=== PATIENT | male | born 1965 | race Caucasian/White ===

== ENCOUNTER 2018-02-17 10:40 | Emergency (ER) | payer BC ==
[2018-02-17] MEDS ORDERED: Ondansetron PF 4 MG/2 ML Vial ONE (11:28)
[2018-02-17] MEDS ORDERED: Morphine 4 MG/ML VIAL ONE ×2 (11:28→14:53)
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
[2018-02-17 11:51] LABS: #Basophils 0.1 thou/uL (0.0-0.2); #Eosinphils 0.4 thou/uL (0.0-0.7); #Lymphocytes 3.8 thou/uL (1.20-3.40); #Monocytes 0.6 thou/uL (0.11-0.59); #Neutrophils 5.2 thou/uL (1.40-6.50); %Basophils 0.9 % (0.0-1.0); %Eosinophils 3.9 % (0.0-10.0); %Lymphocytes 37.9 % (21.0-51.0); %Monocytes 5.7 % (0.0-10.0); %Neutrophils 51.6 % (42.0-75.0); Mean Corpuscular HGB CONC 35.8 g/dL (32.0-36.0); Mean Corpuscular Hemoglobin 29.8 pg (27.0-31.0); Mean Corpuscular Volume 83.4 fL (78.0-98.0); Mean Platelet Volume 7.9 fL (7.4-10.4); Platelet Count 210 thou/uL (130-400); RBC Distribution Width 11.7 % (11.5-14.5); Red Blood Cell (RBC) Count 5.03 mill/uL (4.70-6.10)
[2018-02-17 12:32] LABS: ALT (SGPT) 43 U/L (8-55); AST (SGOT) 31 U/L (5-34); Albumin 4.3 g/dL (3.5-5.0); Alkaline Phosphatase 70 U/L (40-150); Anion Gap 21 mmol/L (10-20); BUN (Urea Nitrogen) 16 mg/dL (8.4-25.7); Bilirubin, Total 0.6 mg/dL (0.2-1.2); Calc. Creatinine Clearance 0 mL/min (70-130); Calcium 9.7 mg/dL (7.8-10.44); Carbon Dioxide 13 mmol/L (22-29); Chloride 102 mmol/L (98-107); Estimated GFR-MDRD Greater than 90; Glucose 250 mg/dL (70-105); Potassium 4.2 mmol/L (3.5-5.1); Protein, Total 8.3 g/dL (6.0-8.3); Sodium 132 mmol/L (136-145)
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
== END 2018-02-17 15:30 | disposition home or self-care (01) ==
LOC: ERS 10:40
DX: S80.812A Abrasion, left lower leg, initial encounter (principal); M25.511 Pain in right shoulder; M54.5 Low back pain; R20.2 Paresthesia of skin; E78.5 Hyperlipidemia, unspecified; E11.9 Type 2 diabetes mellitus without complications; Z87.891 Personal history of nicotine dependence; Z79.84 Long term (current) use of oral hypoglycemic drugs; Z79.899 Other long term (current) drug therapy; Z79.82 Long term (current) use of aspirin; I50.9 Heart failure, unspecified; V43.52XA Car driver injured in collision with other type car in traffic accident, initial encounter
CPT/HCPCS: 36415; 70450; 71260; 72125; 72141; 74177; 80053; 84484; 85025; 93005; 96374; 96375; 96376; J2270; J2405

== ENCOUNTER 2019-04-02 17:15 | Day surgery (SDC) | payer BC ==
[~2019-04-02 17:15] MED LIST: Bupivacaine PF 0.75% SDV 10 ML ONE; CEFAZOLIN 1 GM VIAL ONE; Enoxaparin Sodium 30 MG/0.3 ML SYRINGE ONE; Fluorouracil 100 MG, Enoxaparin Sodium 25 MG, EPINEPHrine 0.3 MG in Ophthalmic Irrigati... IRR SCH; Lidocaine 1% PF 5 ML VIAL ONE; Lidocaine 4% PF 5 ML AMP ONE; Maxitrol 0.1% Opth Oint 3.5 GM TUBE ONE; PROPOFOL 200 MG/20 ML VIAL ONE; Triamcinolone 40 MG/ML VIAL ONE
[2019-04-02] MEDS ORDERED: Cyclopentolate 1% Opth Drop 2 ML BOT ONE (17:19)
[2019-04-02] MEDS ORDERED: Phenylephrine 2.5% Ophth Soln 5 ML BOT ONE (17:20)
[2019-04-02] MEDS ORDERED: Midazolam HCl 2 mg/2 ml Vial ONE (17:23)
[2019-04-02] MEDS ORDERED: Insulin Regular 300 UNITS/3 ML VIAL ONE (17:41)
[2019-04-02] MEDS ORDERED: Fentanyl 100 MCG/2 ML VIAL ONE (18:43)
--- NOTE | 2019-04-02 20:46 | OP ---
DATE OF PROCEDURE: 04/02/2019 PREOPERATIVE DIAGNOSIS: Rhegmatogenous retinal detachment, left eye. POSTOPERATIVE DIAGNOSIS: Rhegmatogenous retinal detachment, left eye. PROCEDURE PERFORMED: Pars plana vitrectomy and retinal detachment repair, left eye. ANESTHESIA: Local with monitored anesthesia care. DESCRIPTION OF PROCEDURE: The patient was identified in the preoperative holding area. Appropriate informed consent for the planned surgical procedure on the left eye had been obtained. The patient was transported to the operative suite. Appropriate cardiopulmonary monitoring was established. Local anesthesia was obtained using retrobulbar modified Van Lint lid block using 50:50 mixture of 4% lidocaine and 0.75% bupivacaine. The patient was prepped and draped in usual sterile manner for ophthalmic surgery in the left eye. Lid speculum was placed in the left eye. A 25-gauge trocar was placed in the conjunctiva and sclera superotemporally, inferotemporally, and supranasally. Infusion line was placed inferotemporally. Light pipe and vitreous cutter were inserted to the eye. Core vitrectomy was performed. Vitreous base was shaved 360 degrees using wide field viewing system. Special attention was turned to the detachment superiorly. The posterior drain was created superior to the nerve. A laser barricade was placed in attached retina. Complete air-fluid exchange was performed, flattening the retina, and a 360 laser barricade was completed, 10 minutes were allowed for fluid to drain posteriorly. 28% sulfur hexafluoride gas was infused into the eye. Superior sclerotomy suture closed. Retrobulbar Kenalog and subconjunctival Ancef were placed. Antibiotic ointment was placed. Eye was patched and shielded. The patient was advised to position right side down and followup appointment with Dr. Carey. Job ID: [id number]
== END 2019-04-02 20:26 | disposition home or self-care (01) ==
LOC: SDC 17:15
PROVIDERS: ATTEND Ophthalmology Retina Specialist
PROC: 08T53ZZ Resection of Left Vitreous, Percutaneous Approach (ICD-10-PCS; principal; 2019-04-02)
DX: H33.012 Retinal detachment with single break, left eye (principal); Z91.013 Allergy to seafood; Z91.041 Radiographic dye allergy status
CPT/HCPCS: 36416; 67025; J0171; J0690; J1650; J1815; J2001; J2250; J2704; J3010; J3301; J3490; J9190

== ENCOUNTER 2020-02-11 15:43 | Observation (INO) | payer BC ==
[~2020-02-11 15:43] MED LIST changes: -Bupivacaine PF 0.75% SDV 10 ML ONE; -CEFAZOLIN 1 GM VIAL ONE; -Enoxaparin Sodium 30 MG/0.3 ML SYRINGE ONE; -Fluorouracil 100 MG, Enoxaparin Sodium 25 MG, EPINEPHrine 0.3 MG in Ophthalmic Irrigati... IRR SCH; +Iopamidol 370 76% 100 ML VIAL ONE; -Lidocaine 1% PF 5 ML VIAL ONE; -Lidocaine 4% PF 5 ML AMP ONE; -Maxitrol 0.1% Opth Oint 3.5 GM TUBE ONE; -PROPOFOL 200 MG/20 ML VIAL ONE; -Triamcinolone 40 MG/ML VIAL ONE
[2020-02-11] MEDS ORDERED: cefTRIAXone\\ROCEPHIN 2 GM VIAL ONE (16:35)
[2020-02-11 16:53] LABS: #Eosinphils 0.5 thou/uL (0.0-0.7); #Lymphocytes 3.1 thou/uL (1.20-3.40); #Monocytes 0.9 thou/uL (0.11-0.59); %Basophils 0.3 % (0.0-1.0); %Eosinophils 4.4 % (0.0-10.0); %Lymphocytes 26.7 % (21.0-51.0); %Monocytes 7.6 % (0.0-10.0); %Neutrophils 60.9 % (42.0-75.0); Hemoglobin 14.6 g/dL (14.0-18.0); Mean Corpuscular HGB CONC 34.8 g/dL (32.0-36.0); Mean Platelet Volume 7.7 fL (7.4-10.4); Platelet Count 197 thou/uL (130-400); RBC Distribution Width 11.9 % (11.5-14.5); Red Blood Cell (RBC) Count 4.86 mill/uL (4.70-6.10); White Blood Cell (WBC) Count 11.5 thou/uL (4.8-10.8)
[2020-02-11] MEDS ORDERED: Azithromycin 500 MG VIAL ONE (17:17)
[2020-02-11 17:25] LABS: ALT (SGPT) 33 U/L (8-55); AST (SGOT) 21 U/L (5-34); Albumin 4.4 g/dL (3.5-5.0); Alkaline Phosphatase 49 U/L (40-110); Anion Gap 17 mmol/L (10-20); BUN (Urea Nitrogen) 20 mg/dL (8.4-25.7); Bilirubin, Total 0.6 mg/dL (0.2-1.2); Calc. Creatinine Clearance 0 mL/min (70-130); Calcium 9.2 mg/dL (7.8-10.44); Carbon Dioxide 23 mmol/L (22-29); Chloride 102 mmol/L (98-107); Globulin 2.8 g/dL (2.4-3.5); Glucose 265 mg/dL (70-105); Protein, Total 7.2 g/dL (6.0-8.3); Sodium 138 mmol/L (136-145)
[2020-02-11 18:18] LABS: Bacteria/HPF None Seen HPF (None Seen); Bilirubin Negative (Negative); Blood, Urine Trace (Negative); Clarity Clear (Clear); Glucose, Urine (Dipstick) Greater than 1000 mg/dL (Negative); Ketone, Urine Negative (Negative); Leukocyte Negative Leu/uL (Negative); Nitrite Negative (Negative); Protein, Urine (Dipstick) Negative (Neg-Trace); RBC/HPF 0-3 HPF (0-3); Specific Gravity, Urine 1.023 (1.002-1.036); Squamous Epithelial None Seen HPF (0-3); Urobilinogen Normal mg/dL (Less than 2); WBC/HPF 0-3 HPF (0-3); pH, Urine 5.5 (5.0-9.0)
--- NOTE | 2020-02-11 19:25 | RAD ---
SINGLE VIEW OF THE CHEST: 02/11/20 COMPARISON: 07/14/08 HISTORY: Cough and fever. Suspected COVID infection. FINDINGS: Single view of the chest shows a normal sized cardiomediastinal silhouette. There is no evidence of c onsolidation, mass, or pleural effusion. The bones are unremarkable. IMPRESSION: No evidence of acute cardiopulmonary disease. POS: [facility]
[2020-02-11 20:10] LABS: Lactic Acid 1.5 mmol/L (0.5-2.2)
[2020-02-11] MEDS ORDERED: Acetaminophen 325 MG TAB PO PRN (21:05)
--- NOTE | 2020-02-11 21:36 | CT ---
CTA Angio Chest W WO Con History: Shortness of breath Comparison: Radiograph chest same day Findings: CT angiogram chest performed after the intravenous ministration of contrast. 3-D rendering provided. Evaluation for embolism was limited due to the delayed phase of contrast with minimal contrast within the pulmonary arteries. Given this limitation no proximal segmental pulmonary arterial filling defect. No significant pericardial effusion. Aortic contour is nonaneurysmal. Diffuse hepatic steatosis. Small reactive mediastinal lymph nodes. No confluent airspace consolidation, pneumothorax or effusion. Small 4 mm nodule posterior left lower lobe has not grown cyst comparison CT examination February 2018. Sternum and manubrium are intact. Thoracic spine is intact. No acute displaced rib fracture. Left cor acoid bone island. Impression: No pulmonary embolism or other acute intrathoracic abnormality.
--- NOTE | 2020-02-12 00:14 | HP ---
CHIEF COMPLAINT: Shortness of breath, cough. HISTORY OF PRESENT ILLNESS: Mr. Rodriguez is a 54-year-old male with past medical history of diabetes, hypertension, hyperlipidemia, unspecified heart condition, presents to the emergency room with shortness of breath, cough, fever, body aches, and chest pain, this has been going on for the last 3 days. The patient was seen at Urgent Care and had a rapid COVID swab done and it was negative. Urgent Care MD suspected the patient has COVID, so he sent here for further evaluation. Initial workup in the emergency room, patient had a lactic acid of 3.5, repeat lactic acid is 1.5. Troponin less than 0.01. Electrolytes showed glucose of 265, otherwise unremarkable. D-dimer was 0.29, WBC count 11.5, hemoglobin 14.6, platelets 197. CT of the chest negative for pulmonary embolism, no acute lung pathology. The patient is being admitted to hospital for further management. PAST MEDICAL HISTORY: As mentioned above in the history of present illness. PAST SURGICAL HISTORY: 1. Appendectomy. 2. Back surgery. SOCIAL HISTORY: The patient is a former cigarette smoker. He drinks socially every week. FAMILY HISTORY: Reviewed and noncontributory. HOME MEDICATIONS: See home medication reconciliation form for updated medications. ALLERGIES: ALLERGIC TO IODINE?? REVIEW OF SYSTEMS: Review of 14 systems negative except what is mentioned in the history of present illness. PHYSICAL EXAMINATION: GENERAL: The patient is awake, alert, in mild distress. VITAL SIGNS: Temperature is 99.2, respiratory rate 26, pulse is 98, and blood pressure is 152/85. HEENT: Normocephalic, atraumatic. NECK: Supple. No JVD. CHEST: Coarse bilateral breath sounds. HEART: S1, S2. Regular. ABDOMEN: Soft, nontender. Bowel sounds present. NEUROLOGIC: Awake, alert, and oriented x3. PSYCH: Normal mood. EXTREMITIES: No clubbing or cyanosis. GENITOURINARY: No suprapubic tenderness. No flank tenderness. LABORATORY DATA: As mentioned above in history of present illness. IMAGING STUDIES: As mentioned above in history of present illness. ASSESSMENT: 1. Shortness of breath, etiology is not clear. 2. Respiratory tract infection?? 3. Suspected sepsis. The patient had tachycardia, fever, and elevated lactic acid. 4. Diabetes mellitus type 2. 5. Hypertension. 6. Hyperlipidemia. PLAN: 1. Admit. 2. Septic workup was done in the ED. 3. Empiric IV antibiotics for now. 4. Reconcile home medications. 5. DVT prophylaxis as appropriate. 6. Expected length of stay, 1 midnight if patient is stable and shows clinical improvement. Job ID: [id number]
[2020-02-12] MEDS ORDERED: HumaLOG 300 UNITS/3 ML VIAL SC PRN (08:43)
[2020-02-12] MEDS ORDERED: Dextrose 5% in Water 1,000 ML IV PRN (08:43)
[2020-02-12] MEDS ORDERED: Dextrose 50% Abboject 50 ML SYRINGE SLOW IVP PRN (08:43)
[2020-02-12] MEDS ORDERED: Fenofibrate Nanocrystallized 145 MG TAB PO SCH (09:00)
[2020-02-12] MEDS ORDERED: Non-Formulary Item 1 EACH (Fenofibrate [Fenofibrate] 150 MG Capsule) PO SCH (09:00)
[2020-02-12] MEDS ORDERED: Atorvastatin Calcium 40 MG TAB PO SCH (09:00)
[2020-02-12] MEDS ORDERED: Aspirin 81 mg Enteric Coated Tablet PO SCH (09:00)
[2020-02-12] MEDS ORDERED: Glimepiride 4 MG TAB PO SCH (09:00)
[2020-02-12] MEDS ORDERED: Enoxaparin Sodium 40 MG/0.4 ML SYRINGE SC SCH (09:00)
[2020-02-12] MEDS ORDERED: Lisinopril 5 MG TAB PO SCH (09:00)
[2020-02-12 09:35] LABS: #Basophils 0.1 thou/uL (0.0-0.2); #Eosinphils 0.7 thou/uL (0.0-0.7); #Monocytes 0.7 thou/uL (0.11-0.59); #Neutrophils 4.9 thou/uL (1.40-6.50); %Basophils 0.6 % (0.0-1.0); %Eosinophils 7.2 % (0.0-10.0); %Lymphocytes 31.6 % (21.0-51.0); %Monocytes 7.9 % (0.0-10.0); %Neutrophils 52.7 % (42.0-75.0); Hemoglobin 13.3 g/dL (14.0-18.0); Mean Corpuscular HGB CONC 34.3 g/dL (32.0-36.0); Mean Corpuscular Hemoglobin 29.6 pg (27.0-31.0); Mean Corpuscular Volume 86.1 fL (78.0-98.0); Mean Platelet Volume 7.4 fL (7.4-10.4); Platelet Count 194 thou/uL (130-400); Red Blood Cell (RBC) Count 4.51 mill/uL (4.70-6.10); White Blood Cell (WBC) Count 9.3 thou/uL (4.8-10.8)
--- NOTE | 2020-02-12 11:03 | PDOC.DS.DS ---
Provider - Provider Date of Admission: 02/11/20 20:56 Date of Discharge: 02/12/20 Admitting Provider: Dank Montemayor MD Primary Care Physician: Anuradha Long Course - Hospital Course Hospital Course: Patient is a 54-year-old male who has some history of palpitations. He presented to Dr. Currie in the past. He aggressively worked on lowering his blood sugars and cholesterol. He has had an echocardiogram with no significant findings that he is aware of. Patient developed some sinus pressure, drainage and sore throat. He felt a little chest congestion and was concerned he may have Covid. He presented to the respiratory clinic. There he had a negative Covid screen and flu screen. He did have a chest x-ray. Apparently there was findings on the chest x-ray that were concerning for congestive heart failure. Patient was subsequently transferred to the hospital. While in the emergency department the patient discovered that the x-ray report that had been sent with him was actually for someone with the same first and last name but different middle initial and the x-ray report was from 2003. Repeat chest x-ray here was negative. CTA of the chest showed no pulmonary embolism or other acute abnormalities. He was felt to be tachycardic and tachypneic on arrival. Maximum pulse was 103, temperature was 99.2. He was given Rocephin and azithromycin. He was noted on exam to be breathing comfortably and his lungs were clear. He had mild leukocytosis with a white count of 11.5. Lactic acid was 3.5. Repeat was 1.5. Patient did well overnight. Following morning his white count is 9.3 hemoglobin is 13.3 he feels generally well. He continues to have sinus pressure and some sore throat but is breathing well. Has no chest pain. Indicates he was a little upset by the error on the chest x-ray report. This may have accounted for his subtle tachycardia. Ultimately, I do not believe the patient truly had sepsis. Appears the patient has some sinus infection and is appropriate for discharge in stable condition with outpatient oral antibiotics. Resuscitation Status: 02/11/20 21:05 Resuscitation Status Routine Resuscitation Status: FULL: Full Resuscitation - Labs Lab Results: 02/12/20 09:25 02/11/20 16:40 Abnormal Lab Results - Last 48 hrs 02/11/20 16:40: WBC 11.5 H, Hct 41.8 L, Neutrophils # 7.0 H, Monocytes # 0.9 H 02/11/20 16:40: Lactic Acid 3.5 H 02/11/20 17:50: Urine Glucose (UA) Greater than 1000 A, Urine Blood Trace A 02/12/20 09:25: RBC 4.51 L, Hgb 13.3 L, Hct 38.9 L, Monocytes # 0.7 H Microbiology - Entire Visit 02/11/20 16:40 Venous blood - Left Arm Blood Culture - Preliminary Specimen has been received and culture in progress. No Growth to date. 02/11/20 16:40 Venous blood - Right Arm Blood Culture - Preliminary Specimen has been received and culture in progress. No Growth to date. - Physical Exam Vitals: Vital Signs (12 hours) Temp Pulse Resp BP BP Pulse Ox 02/12/20 10:22 81 132/83 02/12/20 07:40 98.8 F 84 16 179/106 H 98 02/12/20 03:23 98.4 F 71 20 123/73 96 02/11/20 23:11 99.4 F 97 20 135/74 97 Weight Weight 201 lb 4.513 oz Physical Exam: The patient was seen and examined on the day of discharge. Patient is awake and alert. Pleasant cooperative. He has some tenderness to palpation in the maxillary sinus area. He has some pharyngeal erythema. Lungs are clear bilaterally with no wheezes or rales. Heart is regular without murmurs. Abdomen is benign. Problem - Problem (1) Sinusitis Code(s): J32.9 - CHRONIC SINUSITIS, UNSPECIFIED Status: Acute (2) Lactic acidosis Code(s): E87.2 - ACIDOSIS Status: Acute (3) Diabetes mellitus Code(s): E11.9 - TYPE 2 DIABETES MELLITUS WITHOUT COMPLICATIONS Status: Acute (4) Hyperlipidemia Code(s): E78.5 - HYPERLIPIDEMIA, UNSPECIFIED Status: Acute Plan - Discharge Medications Prescriptions: Amoxicillin/Potassium Clav [Augmentin 875-125 Tablet] 1 each PO BID #20 tablet Home Medications: Medication Instructions Recorded Confirmed Type Aspirin [Adult Low Dose Aspirin EC] 81 mg PO DAILY 06/13/16 02/11/20 History Atorvastatin Calcium 40 mg PO QAM 06/13/16 02/11/20 History Fenofibrate 150 mg PO DAILY 02/11/20 02/11/20 History Glimepiride 4 mg PO BID 02/11/20 02/11/20 History Lisinopril 5 mg PO DAILY 02/11/20 02/11/20 History metFORMIN [Glucophage] 850 mg PO BID-WM 02/11/20 02/11/20 History Amoxicillin/Potassium Clav 1 each PO BID #20 tablet 02/12/20 Rx [Augmentin 875-125 Tablet] Allergies: iodine Allergy (Verified 07/16/19 19:46) shellfish derived Allergy (Verified 07/16/19 19:46) - Discharge Instructions Nourishment:: Diabetic Diet, Heart Healthy Diet - Follow up Plan Referrals: Anuradha Long [Primary Care Provider] - Disposition: HOME Quality - Care Measures CORE MEASURES:: N/A
[2020-02-12 11:41] VITALS: BP 154/82; TEMP 98.6
[2020-02-12] MEDS ORDERED: metFORMIN 850 MG TAB PO SCH (17:00)
[2020-02-12] MEDS ORDERED: cefTRIAXone\\ROCEPHIN 1 GM in Sodium Chloride 0.9% 100 ML IVPB SCH (17:00)
[2020-02-12] MEDS ORDERED: Azithromycin 500 MG in Sodium Chloride 0.9% 250 ML 250 ML IVPB SCH (18:00)
== END 2020-02-12 12:20 | disposition home or self-care (01) ==
LOC: ERS 15:43 → 2NO 20:56
PROVIDERS: ADMIT Internal Medicine; ATTEND Internal Medicine
DX: J32.9 Chronic sinusitis, unspecified (principal); E11.10 Type 2 diabetes mellitus with ketoacidosis without coma; E78.5 Hyperlipidemia, unspecified; I11.0 Hypertensive heart disease with heart failure; I50.9 Heart failure, unspecified; E78.00 Pure hypercholesterolemia, unspecified; Z87.891 Personal history of nicotine dependence; Z79.82 Long term (current) use of aspirin; Z79.84 Long term (current) use of oral hypoglycemic drugs; Z79.899 Other long term (current) drug therapy; Z91.013 Allergy to seafood; Z91.041 Radiographic dye allergy status
CPT/HCPCS: 36415; 71045; 71275; 80053; 81003; 81015; 83605; 83880; 84484; 85025; 85379; 87040; 87635; 93005; 96365; 96367; G0378; J0456; J0696; Q9967; U0003

== ENCOUNTER 2021-07-25 10:44 | Outpatient (CLI) | payer BC | END 2021-07-25 10:45 | disposition home or self-care (01) | LOC: BICULT 10:44 | PROVIDERS: ATTEND Family Medicine | DX: R17 Unspecified jaundice (principal); R16.0 Hepatomegaly, not elsewhere classified; K76.0 Fatty (change of) liver, not elsewhere classified | CPT/HCPCS: 76700 ==

== ENCOUNTER 2023-02-05 16:09 | Outpatient (CLI) | payer BC | END 2023-02-05 16:10 | disposition home or self-care (01) | LOC: BICRAD 16:09 | PROVIDERS: ATTEND Family Medicine | DX: M54.2 Cervicalgia (principal); M47.812 Spondylosis without myelopathy or radiculopathy, cervical region | CPT/HCPCS: 72040 ==

== ENCOUNTER 2023-08-08 11:35 | Emergency (ER) | payer BC ==
[~2023-08-08 11:35] MED LIST changes: -Iopamidol 370 76% 100 ML VIAL ONE; +Iopamidol-370 76% 500 ML MDV (1 ML CHARGE) ONE
[2023-08-08 12:28] LABS: #Basophils 0.05 10x3/uL (0.0-0.2); %Basophils 0.4 % (0.0-1.0); %Eosinophils 1.5 % (0.0-10.0); %Monocytes 7.8 % (0.0-10.0); %Neutrophils 68.9 % (42.0-75.0); Hemoglobin 16.8 g/dL (14.0-18.0); Mean Corpuscular HGB CONC 35.7 g/dL (32.0-36.0); Mean Corpuscular Hemoglobin 30.2 pg (27.0-31.0); Mean Corpuscular Volume 84.4 fL (78.0-98.0); Mean Platelet Volume 10.1 fL (7.4-10.4); Platelet Count 182 10x3/uL (130-400); RBC Distribution Width 12.6 % (11.5-14.5); Red Blood Cell (RBC) Count 5.57 mill/uL (4.70-6.10)
[2023-08-08] MEDS ORDERED: Morphine 4 MG/ML VIAL ONE ×2 (12:41→15:29)
[2023-08-08] MEDS ORDERED: diphenhydrAMINE 50 MG/ML VIAL ONE (12:41)
[2023-08-08] MEDS ORDERED: Ondansetron PF 4 MG/2 ML Vial ONE (12:42)
[2023-08-08] MEDS ORDERED: Ketorolac Tromethamine 30 MG (1 mL) VIAL ONE (12:42)
[2023-08-08] MEDS ORDERED: Famotidine/PF 20 mg/2ml Vial ONE (12:42)
[2023-08-08] MEDS ORDERED: methylPREDNISolone Sod Succ 40 MG VIAL ONE (12:42)
[2023-08-08 12:46] LABS: ALT (SGPT) 21 U/L (8-55); AST (SGOT) 15 U/L (5-34); Albumin 4.1 g/dL (3.5-5.0); Alkaline Phosphatase 79 U/L (40-110); Anion Gap 15 mmol/L (10-20); BUN (Urea Nitrogen) 14 mg/dL (8.4-25.7); Bilirubin, Total 2.2 mg/dL (0.2-1.2); Calc. Creatinine Clearance 0 mL/min (70-130); Calcium 9.7 mg/dL (7.8-10.44); Carbon Dioxide 20 mmol/L (22-29); Chloride 104 mmol/L (98-107); Estimated GFR 107; Globulin 3.9 g/dL (2.4-3.5); Glucose 269 mg/dL (70-105); Lipase 225 U/L (8-78); Potassium 4.1 mmol/L (3.5-5.1); Sodium 135 mmol/L (136-145)
== END 2023-08-08 15:36 | disposition home or self-care (01) ==
LOC: ERS 11:35
DX: K57.32 Diverticulitis of large intestine without perforation or abscess without bleeding (principal); I50.9 Heart failure, unspecified; E11.9 Type 2 diabetes mellitus without complications; Z87.891 Personal history of nicotine dependence; Z55.6 Problems related to health literacy; Z75.3 Unavailability and inaccessibility of health-care facilities
CPT/HCPCS: 74177; 80053; 83690; 85025; 96374; 96375; 96376; J1200; J1885; J2270; J2405; J2920; Q9967; S0028